=== PATIENT | female | born 1935 | race Hispanic/Latino ===

== ENCOUNTER 2020-07-03 10:59 | Outpatient (CLI) | payer MEDICARE, OTHER | END 2020-07-03 11:00 | disposition home or self-care (01) | LOC: CSHMAMMO 10:59 | PROVIDERS: ATTEND Internal Medicine Rheumatology | DX: M81.0 Age-related osteoporosis without current pathological fracture (principal); M85.80 Other specified disorders of bone density and structure, unspecified site | CPT/HCPCS: 77080 ==

== ENCOUNTER 2020-12-25 00:26 | Inpatient (IN) | payer MEDICARE, MEDICAID, OTHER ==
[2020-12-25 01:08] VITALS: BMI 35.3
[2020-12-25] MEDS ORDERED: Dextrose 5% in Water 1,000 ML IV PRN (01:19)
[2020-12-25] MEDS ORDERED: Senokot S 8.6-50 MG TAB PO PRN (01:19)
[2020-12-25] MEDS ORDERED: HumaLOG 300 UNITS/3 ML VIAL SC PRN (01:19)
[2020-12-25] MEDS ORDERED: Dextrose 50% Abboject 50 ML SYRINGE SLOW IVP PRN (01:19)
[2020-12-25] MEDS ORDERED: Calcium Carbonate 500 MG ChewTAB PO PRN (01:19)
[2020-12-25] MEDS ORDERED: Ondansetron PF 4 MG/2 ML Vial IVP PRN (01:19)
[2020-12-25] MEDS ORDERED: Albuterol Sulfate 2.5 mg/3 ml Neb NEB PRN (01:25)
[2020-12-25] MEDS ORDERED: hydrALAZINE 20 MG/ML VIAL SLOW IVP PRN (01:48)
[2020-12-25] MEDS: Acetaminophen 325 MG TAB PO PRN ×2 (04:22→10:59)
[2020-12-25] MEDS: Levothyroxine Sodium 50 MCG TAB PO SCH (04:24)
[2020-12-25 06:02] LABS: Anion Gap 17 mmol/L (10-20); BUN (Urea Nitrogen) 40 mg/dL (9.8-20.1); Calc. Creatinine Clearance 38 mL/min (70-130); Calcium 9.8 mg/dL (7.8-10.44); Carbon Dioxide 20 mmol/L (23-31); Chloride 107 mmol/L (98-107); Glucose 88 mg/dL (83-110); Potassium 4.8 mmol/L (3.5-5.1); Sodium 139 mmol/L (136-145)
[2020-12-25 06:09] LABS: #Eosinphils 0.5 10x3/uL (0.0-0.5); #Monocytes 0.5 10x3/uL (0.0-1.1); #Neutrophils 4.9 10x3/uL (1.5-8.4); %Basophils 0.3 % (0.0-2.0); %Eosinophils 7.3 % (0.0-6.0); %Lymphocytes 12.4 % (18.0-47.0); %Monocytes 7.9 % (0.0-10.0); %Neutrophils 71.7 % (40.0-75.0); Mean Corpuscular HGB CONC 30.2 g/dL (32.0-36.0); Mean Corpuscular Hemoglobin 31.6 pg (27.0-33.0); Mean Corpuscular Volume 104.7 fl (81.6-98.3); Mean Platelet Volume 9.4 fl (7.4-10.4); Platelet Count 185 10x3/uL (150-450); RBC Distribution Width 16.8 % (11.5-14.5); Red Blood Cell (RBC) Count 2.53 10x6/uL (3.90-5.03); White Blood Cell (WBC) Count 6.9 10x3/uL (3.5-10.5)
[2020-12-25] MEDS: Furosemide 40 MG/4 ML VIAL SLOW IVP SCH ×2 (06:33→14:42)
[2020-12-25 08:01] LABS: Thyroid Stimulating Hormone 5.3394 uIU/mL (0.35-4.94)
[2020-12-25] MEDS ORDERED: DULoxetine 30 MG CAP PO SCH (09:00)
[2020-12-25 11:14] LABS: Hemoglobin A1c 5.3 % (4.0-6.0)
[2020-12-25] MEDS: Gabapentin 300 MG CAP PO SCH ×3 (11:49→20:36)
[2020-12-25] MEDS: Aspirin 81 mg Enteric Coated Tablet PO SCH (11:49)
[2020-12-25] MEDS: Lisinopril 5 MG TAB PO SCH (11:49)
[2020-12-25] MEDS: Enoxaparin Sodium 30 MG/0.3 ML SYRINGE SC SCH (11:49)
[2020-12-25] MEDS: Escitalopram Oxalate 20 mg Tablet PO SCH (11:49)
[2020-12-25] MEDS: Alogliptin 25 MG TAB PO SCH (11:50)
[2020-12-25] MEDS: Nitroglycerin 2% Ointment 1 INCH/1 GM Packet TOP SCH (11:50)
[2020-12-25] MEDS: Atorvastatin Calcium 10 MG TAB PO SCH (20:36)
[2020-12-25] MEDS ORDERED: Atorvastatin Calcium 10 MG TAB PO SCH (21:00)
[2020-12-26 04:29] LABS: Anion Gap 15 mmol/L (10-20); BUN (Urea Nitrogen) 39 mg/dL (9.8-20.1); Calc. Creatinine Clearance 36 mL/min (70-130); Calcium 9.5 mg/dL (7.8-10.44); Carbon Dioxide 24 mmol/L (23-31); Chloride 104 mmol/L (98-107); Glucose 83 mg/dL (83-110); Potassium 4.6 mmol/L (3.5-5.1); Sodium 138 mmol/L (136-145)
[2020-12-26 04:41] LABS: #Eosinphils 0.6 10x3/uL (0.0-0.5); #Monocytes 0.8 10x3/uL (0.0-1.1); #Neutrophils 4.9 10x3/uL (1.5-8.4); %Basophils 0.5 % (0.0-2.0); %Eosinophils 7.6 % (0.0-6.0); %Lymphocytes 16.3 % (18.0-47.0); %Monocytes 10.1 % (0.0-10.0); %Neutrophils 65.4 % (40.0-75.0); Hemoglobin 7.9 g/dL (12.0-15.5); Mean Corpuscular HGB CONC 31.3 g/dL (32.0-36.0); Mean Corpuscular Hemoglobin 31.9 pg (27.0-33.0); Mean Corpuscular Volume 101.6 fl (81.6-98.3); Mean Platelet Volume 9.4 fl (7.4-10.4); Platelet Count 198 10x3/uL (150-450); RBC Distribution Width 16.8 % (11.5-14.5); Red Blood Cell (RBC) Count 2.48 10x6/uL (3.90-5.03); White Blood Cell (WBC) Count 7.5 10x3/uL (3.5-10.5)
[2020-12-26] MEDS: Furosemide 40 MG/4 ML VIAL SLOW IVP SCH (06:49)
[2020-12-26] MEDS: Levothyroxine Sodium 50 MCG TAB PO SCH (06:49)
[2020-12-26] MEDS: Enoxaparin Sodium 30 MG/0.3 ML SYRINGE SC SCH (10:31)
[2020-12-26] MEDS: Gabapentin 300 MG CAP PO SCH ×3 (10:31→21:03)
[2020-12-26] MEDS: Alogliptin 25 MG TAB PO SCH (10:32)
[2020-12-26] MEDS: Escitalopram Oxalate 20 mg Tablet PO SCH (10:32)
[2020-12-26] MEDS: Lisinopril 5 MG TAB PO SCH (10:32)
[2020-12-26] MEDS: Aspirin 81 mg Enteric Coated Tablet PO SCH (10:32)
[2020-12-26] MEDS: Nitroglycerin 2% Ointment 1 INCH/1 GM Packet TOP SCH (10:33)
[2020-12-26] MEDS: Furosemide 20 MG TAB PO SCH (16:00)
[2020-12-26] MEDS: Atorvastatin Calcium 10 MG TAB PO SCH (21:03)
[2020-12-27] MEDS: Levothyroxine Sodium 50 MCG TAB PO SCH (06:50)
[2020-12-27] MEDS ORDERED: Furosemide 20 MG TAB PO SCH (09:00)
[2020-12-27] MEDS: Gabapentin 300 MG CAP PO SCH ×3 (10:13→22:20)
[2020-12-27] MEDS: Alogliptin 25 MG TAB PO SCH (10:13)
[2020-12-27] MEDS: Escitalopram Oxalate 20 mg Tablet PO SCH (10:13)
[2020-12-27] MEDS: Aspirin 81 mg Enteric Coated Tablet PO SCH (10:13)
[2020-12-27] MEDS: Lisinopril 5 MG TAB PO SCH (10:14)
[2020-12-27] MEDS: Furosemide 20 MG TAB PO SCH ×2 (10:14→14:25)
[2020-12-27] MEDS: Enoxaparin Sodium 30 MG/0.3 ML SYRINGE SC SCH (10:15)
[2020-12-27] MEDS: Acetaminophen 325 MG TAB PO PRN ×2 (14:30→22:45)
[2020-12-27] MEDS: Atorvastatin Calcium 10 MG TAB PO SCH (22:20)
[2020-12-28] MEDS: Levothyroxine Sodium 50 MCG TAB PO SCH (05:44)
[2020-12-28 07:04] LABS: Anion Gap 20 mmol/L (10-20); BUN (Urea Nitrogen) 38 mg/dL (9.8-20.1); Calc. Creatinine Clearance 39 mL/min (70-130); Carbon Dioxide 18 mmol/L (23-31); Chloride 109 mmol/L (98-107); Sodium 142 mmol/L (136-145)
[2020-12-28 09:19] LABS: Glucose 91 mg/dL (83-110)
[2020-12-28 09:33] LABS: Potassium 5.1 mmol/L (3.5-5.1)
[2020-12-28] MEDS: Furosemide 20 MG TAB PO SCH ×2 (09:58→15:37)
[2020-12-28] MEDS: Lisinopril 5 MG TAB PO SCH (09:58)
[2020-12-28] MEDS: Gabapentin 300 MG CAP PO SCH ×2 (09:58→15:37)
[2020-12-28] MEDS: Aspirin 81 mg Enteric Coated Tablet PO SCH (09:58)
[2020-12-28] MEDS: Escitalopram Oxalate 20 mg Tablet PO SCH (09:59)
[2020-12-28] MEDS: Alogliptin 25 MG TAB PO SCH (09:59)
[2020-12-28] MEDS: Enoxaparin Sodium 30 MG/0.3 ML SYRINGE SC SCH (09:59)
[2020-12-28 13:50] VITALS: TEMP 98.2
[2020-12-28 15:00] VITALS: BP 107/64
[2020-12-28] MEDS: Acetaminophen 325 MG TAB PO PRN (15:45)
== END 2020-12-28 17:30 | disposition home health service (06) | DRG 291 ==
LOC: CSHTELE 00:26
PROVIDERS: ADMIT Student in an Organized Health Care Education/Training Program; ATTEND Family Medicine
DX: I13.0 Hypertensive heart and chronic kidney disease with heart failure and stage 1 through stage 4 chronic kidney disease, or unspecified chronic kidney disease (principal); I50.33 Acute on chronic diastolic (congestive) heart failure; E03.9 Hypothyroidism, unspecified; G47.33 Obstructive sleep apnea (adult) (pediatric); E78.2 Mixed hyperlipidemia; E11.649 Type 2 diabetes mellitus with hypoglycemia without coma; E87.5 Hyperkalemia; E11.22 Type 2 diabetes mellitus with diabetic chronic kidney disease; N18.30 Chronic kidney disease, stage 3 unspecified; D53.9 Nutritional anemia, unspecified; E66.9 Obesity, unspecified; Z68.34 Body mass index [BMI] 34.0-34.9, adult; E11.40 Type 2 diabetes mellitus with diabetic neuropathy, unspecified; M19.90 Unspecified osteoarthritis, unspecified site; Z90.710 Acquired absence of both cervix and uterus; Z88.1 Allergy status to other antibiotic agents; Z88.5 Allergy status to narcotic agent; Z88.8 Allergy status to other drugs, medicaments and biological substances; Z79.84 Long term (current) use of oral hypoglycemic drugs; Z79.82 Long term (current) use of aspirin; Z79.890 Hormone replacement therapy; Z79.899 Other long term (current) drug therapy; I25.10 Atherosclerotic heart disease of native coronary artery without angina pectoris; F41.9 Anxiety disorder, unspecified; F32.9 Major depressive disorder, single episode, unspecified
CPT/HCPCS: 36415; 36416; 71045; 80048; 82553; 82607; 82746; 83036; 83880; 84443; 84484; 85025; 93306; 94640; 94760; J1650; J1940; J7611

== ENCOUNTER 2021-03-12 17:20 | Emergency (ER) | payer MEDICARE, MEDICAID ==
[2021-03-12 19:20] LABS: #Eosinphils 0.3 10x3/uL (0.0-0.5); #Monocytes 0.8 10x3/uL (0.0-1.1); #Neutrophils 4.8 10x3/uL (1.5-8.4); %Basophils 0.3 % (0.0-2.0); %Eosinophils 4.7 % (0.0-6.0); %Lymphocytes 18.5 % (18.0-47.0); %Monocytes 10.7 % (0.0-10.0); %Neutrophils 65.4 % (40.0-75.0); Hemoglobin 8.3 g/dL (12.0-15.5); Mean Corpuscular HGB CONC 30.7 g/dL (32.0-36.0); Mean Corpuscular Hemoglobin 31.9 pg (27.0-33.0); Mean Corpuscular Volume 103.8 fl (81.6-98.3); Mean Platelet Volume 9.3 fl (7.4-10.4); Platelet Count 255 10x3/uL (150-450); White Blood Cell (WBC) Count 7.3 10x3/uL (3.5-10.5)
[2021-03-12 19:34] LABS: ALT (SGPT) 36 U/L (8-55); AST (SGOT) 23 U/L (5-34); Albumin 3.9 g/dL (3.4-4.8); Alkaline Phosphatase 148 U/L (40-110); Anion Gap 16 mmol/L (10-20); BUN (Urea Nitrogen) 42 mg/dL (9.8-20.1); Bilirubin, Total 0.3 mg/dL (0.2-1.2); Calc. Creatinine Clearance 0 mL/min (70-130); Calcium 9.3 mg/dL (7.8-10.44); Carbon Dioxide 20 mmol/L (23-31); Chloride 105 mmol/L (98-107); Globulin 3.8 g/dL (2.4-3.5); Glucose 171 mg/dL (83-110); Potassium 5.1 mmol/L (3.5-5.1); Protein, Total 7.7 g/dL (5.8-8.1); Sodium 136 mmol/L (136-145)
== END 2021-03-12 20:51 | disposition home or self-care (01) ==
LOC: CSHERS 17:20
DX: I11.0 Hypertensive heart disease with heart failure (principal); I50.9 Heart failure, unspecified; Z95.0 Presence of cardiac pacemaker; E11.9 Type 2 diabetes mellitus without complications; E78.5 Hyperlipidemia, unspecified; M19.90 Unspecified osteoarthritis, unspecified site; G47.30 Sleep apnea, unspecified; E66.9 Obesity, unspecified; E03.9 Hypothyroidism, unspecified
CPT/HCPCS: 36415; 71045; 80053; 83880; 84484; 85025; 93005; 94760

== ENCOUNTER 2023-02-07 12:00 | Emergency (ER) | payer OTHER, MEDICAID ==
[2023-02-07 12:38] LABS: #Eosinphils 0.1 10x3/uL (0.0-0.5); #Monocytes 0.5 10x3/uL (0.0-1.1); %Basophils 0.3 % (0.0-2.0); %Eosinophils 1.9 % (0.0-6.0); %Lymphocytes 28.2 % (18.0-47.0); %Neutrophils 62.3 % (40.0-75.0); Hematocrit 33.5 % (34.9-44.5); Mean Corpuscular HGB CONC 32.8 g/dL (32.0-36.0); Mean Corpuscular Hemoglobin 31.6 pg (27.0-33.0); Mean Corpuscular Volume 96.3 fl (81.6-98.3); Mean Platelet Volume 9.4 fl (7.4-10.4); Platelet Count 229 10x3/uL (150-450); Red Blood Cell (RBC) Count 3.48 10x6/uL (3.90-5.03); White Blood Cell (WBC) Count 6.5 10x3/uL (3.5-10.5)
[2023-02-07] MEDS ORDERED: Nitroglycerin 2% Ointment 1 INCH/1 GM Packet ONE (12:38)
[2023-02-07] MEDS ORDERED: Furosemide 40 MG/4 ML VIAL ONE (12:38)
[2023-02-07 12:55] LABS: Troponin I 0.025 ng/mL (< 0.028)
[2023-02-07 13:08] LABS: ALT (SGPT) 31 U/L (8-55); AST (SGOT) 37 U/L (5-34); Albumin 4.3 g/dL (3.4-4.8); Alkaline Phosphatase 132 U/L (40-110); Anion Gap 15 mmol/L (10-20); BUN (Urea Nitrogen) 34 mg/dL (9.8-20.1); Bilirubin, Total 0.3 mg/dL (0.2-1.2); Calc. Creatinine Clearance 0 mL/min (70-130); Calcium 9.3 mg/dL (7.8-10.44); Carbon Dioxide 24 mmol/L (23-31); Chloride 108 mmol/L (98-107); Estimated GFR 38; Globulin 3.3 g/dL (2.4-3.5); Glucose 129 mg/dL (83-110); Potassium 5.1 mmol/L (3.5-5.1); Protein, Total 7.6 g/dL (5.8-8.1); Sodium 142 mmol/L (136-145)
== END 2023-02-07 15:10 | disposition home or self-care (01) ==
LOC: CSHERS 12:00
DX: I11.0 Hypertensive heart disease with heart failure (principal); I50.9 Heart failure, unspecified; E11.9 Type 2 diabetes mellitus without complications; E66.9 Obesity, unspecified; E03.9 Hypothyroidism, unspecified
CPT/HCPCS: 71045; 80053; 83880; 84484; 85025; 93005; 94760; 96374; J1940